=== PATIENT | female | born 1955 | race African-American/Black ===

== ENCOUNTER 2020-05-16 08:24 | Day surgery (SDC) | payer BC ==
[~2020-05-16] VITALS: Ht 167.6 cm; Wt 115.7 kg
[~2020-05-16 08:24] MED LIST: ASCO500C PO; CALC625T PO; CHOL500050 PO; HYDROmorphone 2 MG/ML VIAL IV PRN; IV RINGERS,LACTATED 1000ML 1,000 ML IV SCH; LIDOCAINE 1% PF 2 ML VIAL. ID PRN; LOSA100T14 PO; MELO15TA23 PO; MULT-658 PO; ONDANSETRON PF 4 MG/2 ML VIAL. IV PRN; PROCHLORPERAZINE 10 MG/2 ML VIAL. IV PRN; ceFAZolin SODIUM IV Push 1 GM VIAL. IVP PRN; fentaNYL PF VIAL 100 MCG/2 ML VIAL IV PRN
[2020-05-16] MEDS ORDERED: ROCURONIUM 50 MG/5 ML VIAL. ONE ×3 (08:40→12:05)
[2020-05-16] MEDS ORDERED: DEXAMETHASONE SOD PHOS 4 MG/ML VIAL ONE ×2 (08:41→11:03)
[2020-05-16] MEDS ORDERED: SEVOFLURANE > 120 MINUTES. IH ONE (08:41)
[2020-05-16] MEDS ORDERED: LIDOCAINE 2% PF 5 ML VIAL. ONE ×2 (08:41→11:35)
[2020-05-16] MEDS ORDERED: ONDANSETRON PF 4 MG/2 ML VIAL. ONE (08:41)
[2020-05-16] MEDS ORDERED: PROPOFOL 10 MG/ML (20ML) VIAL. IV ONE ×3 (08:41→11:35)
[2020-05-16] MEDS ORDERED: IOHEXOL 300 MG/ML 50 ML VIAL. ONE (10:04)
[2020-05-16] MEDS ORDERED: BUPIVACAINE-EPI 0.5%-1:200000 MPF 30 ML VIAL. INJ ONE (10:15)
[2020-05-16] MEDS ORDERED: MIDAZOLAM HCL/PF 2 MG/2 ML VIAL. ONE (10:35)
--- NOTE | 2020-05-16 10:48 | PDOC ---
SURGICAL PROGRESS NOTE DATE: 05/16/20 TIME: 10:45 Op Note; Surgeon......................................Karel Pre op diag..................................chronic cholecystits and cholelithiasis Post op diag................................same Anesthesia..................................general Procedure...................................lap joe with grams Drains........................................none Fluids.........................................see anesthesia sheet Blood loss...................................15cc Condition....................................satisfactory Vital Signs Vital Signs Date Time Temp Pulse Resp B/P (MAP) Pulse Ox O2 Delivery O2 Flow Rate FiO2 05/16/20 08:54 97.6 79 18 129/56 99 Room Air 97.6 NELIDA GALVAN MD May 16, 2020 10:48
[2020-05-16] MEDS ORDERED: fentaNYL PF VIAL 100 MCG/2 ML VIAL ONE ×3 (11:03→13:38)
[2020-05-16] MEDS ORDERED: FAMOTIDINE 20 MG/2 ML VIAL ONE (11:04)
[2020-05-16] MEDS ORDERED: PHENYLEPHRINE in 0.9% NACL PF 1 MG/10 ML SYRINGE. IV ONE (11:47)
[2020-05-16] MEDS ORDERED: GLYCOPYRROLATE 1 MG/5 ML VIAL. ONE (11:52)
[2020-05-16] MEDS ORDERED: NEOSTIGMINE METHYLSULFATE 5 MG/5 ML SYRINGE. ONE (11:52)
[2020-05-16] MEDS ORDERED: ePHEDrine PF IN SALINE 50 MG/10 ML SYRINGE. IV ONE (12:04)
--- NOTE | 2020-05-16 12:52 | RAD ---
Intraoperative cholangiogram INDICATION: Status post cholecystectomy. Assess for common duct stones FINDINGS: 3 views of the hepatobiliary tract were obtained intraoperatively during injection of contrast material through the cystic duct stump. Total fluoroscopy time was 1 minute This shows appropriate opacification of the extrahepatic biliary tree with no evidence of filling defects suspicious for a retained common duct stone. IMPRESSION: No choledocholithiasis status post cholecystectomy on intraoperative cholangiogram. Discussed with Dr. Vinson by telephone at 12:03 PM on 05/16/2020 Electronically signed by: Charmaine Todd MD (05/16/2020 12:49 PM) [id number]
--- NOTE | 2020-05-16 13:13 | DISCH ---
DISCHARGE INSTRUCTIONS Condition on Discharge Condition on Discharge: Stable Activity After Discharge Activity Instructions for Disc: Avoid exertion Diet after Discharge Diet after Discharge: Clear Liquid Wound Incision Care Other wound/incision instructi: may shower...leave dressing s on. Do not remove unless absolutely necessar Follow-Up Follow up with: Tegan blair in 2 weeks NELIDA BLAIR MD May 16, 2020 13:13
[2020-05-16] MEDS ORDERED: MORPHINE SULFATE 2 MG/ML VIAL. ONE (13:20)
[2020-05-16] MEDS ORDERED: PROCHLORPERAZINE 10 MG/2 ML VIAL. ONE (13:28)
[2020-05-16] MEDS: MORPHINE SULFATE 2 MG/ML VIAL. IV PRN ×2 (13:32→13:43)
[2020-05-16] MEDS ORDERED: OXYC1TAB19 PO (13:35)
[2020-05-16] MEDS ORDERED: oxyCODONE/APAP 10/325 1 TAB TABLET ONE (13:58)
[2020-05-16] MEDS ORDERED: oxyCODONE/APAP 7.5/325 1 TAB TABLET PO ONE (14:15)
[2020-05-16 14:30] VITALS: BP 128/40
--- NOTE | 2020-05-17 01:56 | OP ---
DATE OF SURGERY: 05/16/2020 SURGEON: Froilan Galvan MD PREOPERATIVE DIAGNOSES: Chronic cholecystitis and cholelithiasis. POSTOPERATIVE DIAGNOSES: Chronic cholecystitis and cholelithiasis. ANESTHESIA: General. PROCEDURE: Laparoscopic cholecystectomy with intraoperative cholangiogram. TECHNIQUE: Under general anesthesia, the patient was properly prepped and draped in routine fashion. She had no previous abdominal surgery and as such, a small infraumbilical incision was made about half inch in length, carried down through the skin. We then passed a Veress needle by pulling up on the skin edges at the umbilicus with 2 towel clips and then passed a Veress needle into the peritoneal cavity. We instilled about 2-3 mL of saline, let it go by gravity into the peritoneal cavity verifying that it was in. We then insufflated the abdomen with CO2 up to a pressure of 15. We then passed an 10/11 mm trocar. The camera was then placed after the trocar was inflated. We inspected the abdomen and then placed the 5 mm trocar in the epigastrium just to the right of the falciform ligament and another one in the right upper quadrant and then another one laterally. These ports were done under direct visualization. Graspers were placed in the lateral ports. The patient was placed in reverse Trendelenburg left side down. The gallbladder was seen, was sort of long and we grasped it about 2 inches away from the fundus, so that it would not be stretched so far and go so far from the diaphragm, pulled it up. There were adhesions to the gallbladder, which were taken down by pulling away with the Harmonic scalpel. These were slowly removed and we were able to identify the cystic duct. We then used the right angle grasper through the epigastric port. After we grasped the gallbladder laterally with the lateral port and grasped the ampulla of the gallbladder with the right upper quadrant grasper, we then were able to identify the cystic duct, encircled it twice, went around it, made openings posterior proximal and high up on the gallbladder. We then clipped the gallbladder high on the gallbladder side of the cystic duct twice with clips. We then made a small incision, nicked with the scissors in the cystic duct close to the gallbladder and distal to these clips. Through a needle, we then placed the catheter with a dye into the cystic duct and clipped it in place with clips. We then aspirated back a small bit of bile and then got cholangiogram, showed dye flow freely into the peritoneal cavity. There were no filling defects. Because of the patient's habitus, she was quite obese, we did not place her back down in . The hepatic radicles could only be seen partially and not fully, but we thought it was better to make certain if the cystic duct and ampulla were all normal rather than have a chance of having the catheter be dislodged with motion and moving her around. We called the radiologist and he did verify that there were no filling defects or abnormalities at all that he could note. We then removed the clip holding the catheter in place, removed the catheter and then clipped the cystic duct 3 times on the patient's side and divided it. We then identified the cystic artery, clipped it twice on the patient's side, once on the gallbladder side and divided. The gallbladder was then shelled out of the gallbladder fossa using Harmonic scalpel slowly and there was a little bleeding and the liver edge was not damaged. Before the gallbladder was completely removed, we inspected the hilum of the gallbladder bed. There was no bleeding, no abnormalities, no bile leak and all was well. We then amputated the gallbladder from the gallbladder tip. We then placed a 5-mm camera in the epigastric port and the EndoCatch basket through the umbilical port. We placed this up toward the right upper quadrant and then put the gallbladder in it, closed it. Luckily, the gallbladder was able to be removed totally without making an opening in the fascia at the infraumbilical area. We then inspected the gallbladder, we could feel the small gallstones in there. This was then sent to pathology. We inspected all areas. There were no further bleeding and we then aspirated all the CO2 from above the liver and out of the abdomen. The defect in the fascia of the infraumbilical port was approximated with two #1 Prolene sutures. We then inspected all areas, all was fine and we anesthetized the fascia with 0.5% Marcaine and epinephrine. The remaining trocars were all removed. The wounds were irrigated with saline and the deeper structures were approximated at subcu with 4-0 Vicryl and in all cases, the skin was closed using a subcuticular 5-0 Vicryl. The procedure was terminated and sterile dressings were applied with Tegaderm. The blood loss was probably 10-15 mL. Fluids given can be obtained from the anesthesia sheet. No drains were used and the condition of the patient was satisfactory as she has returned to the recovery room. FROILAN GALVAN MD DR: JAMES/naida JOB#: [id number] / [id number]
--- NOTE | 2020-05-18 17:06 | PATHOLOGY ---
[facility] Accession Number: [id number] . 01 Material submitted: . gallbladder - GALLBLADDER AND CONTENTS . 01 Clinical history: . GALLSTONES, CHOLELITHIASIS . 02 Diagnosis: Gallbladder, cholecystectomy: - Cholelithiasis. - Cholesterolosis, focal. - Chronic cholecystitis. (JPM:ander; 05/18/2020) QMS 05/18/2020 1119 Local . 02 Comment: There is no evidence of malignancy. (JPM:ander; 05/18/2020) . 02 Electronically signed: . Faisal Garcia MD, Pathologist NPI- [id number] . 01 Gross description: . The specimen is received in formalin, labeled "Anil Gallo, gallbladder and contents". Received is an intact gallbladder measuring 9.6 x 3.7 x 3.5 cm in greatest dimensions displaying a bile-stained serosal surface. Opening the specimen reveals a velvety, bile-stained mucosa displaying mild, diffuse cholesterolosis, and with a gallbladder wall thickness of 0.1 cm. Calculi are present displaying a bright yellow and nodular appearance, and no masses or lesions are noted grossly. Farm [employer]ic sections, to include the proximal margin, are submitted in cassette A1. (CAA; 05/17/2020) QAC/QAC 05/17/2020 1219 Local . 02 Pathologist provided ICD-10: K80.10, K82.4 . 02 CPT . 505842 Specimen Comment: A courtesy copy of this report has been sent to [phone], [phone] Specimen Comment: [id number] Specimen Comment: Report sent to / DR NEWTON Performed at: [address], [place] [id number] MD Tripp Trinidad MD Phone: [phone] Performed at: [address] [id number] MD Faisal Garcia MD Phone: [phone]
== END 2020-05-16 14:42 | disposition home or self-care (01) ==
LOC: SURG 08:24
PROVIDERS: ATTEND Specialist
DX: K80.10 Calculus of gallbladder with chronic cholecystitis without obstruction (principal); I10 Essential (primary) hypertension; M19.90 Unspecified osteoarthritis, unspecified site; G43.909 Migraine, unspecified, not intractable, without status migrainosus; Z79.899 Other long term (current) drug therapy; Z90.710 Acquired absence of both cervix and uterus; Z98.890 Other specified postprocedural states
CPT/HCPCS: 47563; 74300; A7015; J0690; J0780; J1100; J2250; J2270; J2370; J2704; J2710; J3010; J3490; J7030; J7120; Q9967; J2405